=== PATIENT | male | born 1985 | race Caucasian/White ===

== ENCOUNTER 2025-05-28 16:48 | Emergency (ER) | payer BC ==
[~2025-05-28] VITALS: Ht 172.7 cm; Wt 95.0 kg
[2025-05-28 16:52] VITALS: O2SAT 98
[2025-05-28 17:50] LABS: BASOPHILS % 0.3 % (0.0-2.0); EOSINOPHILS % 1.0 % (0.0-5.0); HEMATOCRIT. 43.6 % (42.0-52.0); HEMOGLOBIN. 15.0 g/dL (14.0-18.0); LYMPHOCYTES % 35.6 % (20.0-50.0); MEAN PLATELET VOLUME 10.9 fl (7.4-10.4); MONOCYTES % 6.1 % (2.0-8.0); NEUTROPHILS % 57.0 % (40.0-76.0); PLATELET 180 x1000/uL (130-400); RED BLOOD CELL COUNT 5.22 mill/uL (4.7-6.1); RED CELL DISTRIBUTION WIDTH 14.3 % (11.6-14.6)
[2025-05-28 18:06] LABS: CREATININE 0.9 mg/dL (0.6-1.3); UREA NITROGEN BLOOD 14 mg/dL (9-23)
[2025-05-28 18:08] LABS: ASPARTATE AMINOTRANSFERASE 22 IU/L (<34); BILIRUBIN DIRECT 0.1 mg/dL (<=3.0); BILIRUBIN TOTAL 0.4 mg/dL (0.1-1.0); PROTEIN TOTAL 7.5 g/dL (6.0-8.3); TROPONIN I HIGH SENSITIVITY < 4 ng/L (3.0-53)
[2025-05-28 18:28] VITALS: BP 140/92; PULSE 89; RESP 14; TEMP 36.7; O2SAT 98
== END 2025-05-28 18:28 | disposition home or self-care (01) ==
LOC: ER 16:48
DX: M94.0 Chondrocostal junction syndrome [Tietze] (principal); R06.02 Shortness of breath; Z90.49 Acquired absence of other specified parts of digestive tract
CPT/HCPCS: 80076; 80048; 83880; 83690; 85025; 84484; 36415; 71045; 93005; 99285; Z7610